=== PATIENT | male | born 1995 | race Caucasian/White ===

== ENCOUNTER 2017-04-15 02:58 | Emergency (ER) | payer OTHER ==
[2017-04-15 03:03] VITALS: BP 146/103; PULSE 110; RESP 24; TEMP 99.9
--- NOTE | 2017-04-15 03:30 | ED ---
Wound/Laceration HPI - General Chief Complaint: Wound/Laceration Stated Complaint: Arm Laceration Time Seen by Provider: 04/15/17 03:21 Source: patient, RN notes reviewed Mode of arrival: ambulatory Limitations: no limitations - History of Present Illness Initial Comments: 21 yo male presents for cc of right forearm laceration. Patient cut it on a window tonight. Patient denies any other injury. NO chest pain, SOB, N/V, fever or chills. Onset/Timin -: hour(s) Extremity Location: Right: Forearm Place: home Patient Tetanus UTD: No Context: accidental Associated Symptoms: none Treatments Prior to Arrival: bandage - Related Data Home Medications Medication Instructions Recorded Confirmed No Known Home Medications [No 06/06/16 04/15/17 Known Home Medications] Allergies Allergy/AdvReac Type Severity Reaction Status Date / Time No Known Allergies Allergy Verified 04/15/17 03:03 Review of Systems ROS Statement: Those systems with pertinent positive or pertinent negative responses have been documented in the HPI. ROS Other: All systems not noted in ROS Statement are negative. Past Medical History Past Medical History: No Reported History History of Any Multi-Drug Resistant Organisms: None Reported Past Surgical History: Appendectomy Additional Past Surgical History / Comment(s): testicular tortion Past Psychological History: No Psychological Hx Reported Smoking Status: Never smoker Past Alcohol Use History: Occasional Past Drug Use History: Marijuana General Exam Limitations: no limitations ENT exam: Present: normal exam, mucous membranes moist Neck exam: Present: normal inspection. Absent: tenderness, meningismus, lymphadenopathy Respiratory exam: Present: normal lung sounds bilaterally. Absent: respiratory distress, wheezes, rales, rhonchi, stridor Cardiovascular Exam: Present: regular rate, normal rhythm, normal heart sounds. Absent: systolic murmur, diastolic murmur, rubs, gallop, clicks Right Upper Arm exam: Present: normal inspection, full ROM. Absent: tenderness, swelling Elbow exam: Present: normal inspection, full ROM. Absent: tenderness, swelling Forearm Wrist exam: Present: full ROM, laceration (6 cm right forearm, mutiple abrasion surrounding forearm). Absent: tenderness, swelling, abrasion Vascular: Present: normal capillary refill. Absent: vascular compromise Neurological exam: Present: alert, oriented X3 Psychiatric exam: Present: normal affect, normal mood Skin exam: Present: warm, dry, intact, normal color. Absent: rash Course Vital Signs 04/15/17 03:01 Temperature 99.9 F H Pulse Rate 110 H Respiratory 24 Rate Blood Pressure 146/103 O2 Sat by Pulse 99 Oximetry Procedures - Laceration Laceration #1 Consent Obtained: verbal consent Time Out Performed: Yes Indication: laceration Site: upper extremity Size (cm): 6 Description: linear Depth: simple, single layer Sedation/Analgesia: none Anesthetic Used: lidocaine 1% Anesthesia Technique: local infiltration Amount (mls): 7 Pre-repair: wound explored, deep structures intact Type of Sutures: nylon Size of Sutures: 5-0 (10) Technique: simple, interrupted Patient Tolerated Procedure: well, no complications Medical Decision Making - Medical Decision Making 21 yo male presents with right forearm laceration. At this time patient underwent laceration repair we discussed care, follow up and xray results. We discussed all the patient questions. At this time he is in agreement with plan. return parameters were discussed and home care. Patient will be discharged home. - Radiology Data Radiology results: image reviewed Interpreted by me: right forearm xray 2 view reviewed by me no fracture, no radioopaqe foreign body , no dislocation, soft tissue injury observed. awaiting official radiology read Disposition Clinical Impression: Laceration of right forearm Disposition: HOME SELF-CARE Condition: Stable Instructions: Care For Your Stitches (ED), Laceration (ED) Additional Instructions: Return for removal in 8-10 days. FOr any worsening or changing symptoms return to the ER. Follow up as discussed. Referrals: Isac Ny MD [STAFF PHYSICIAN] - 1-2 days Time of Disposition: 03:57
[2017-04-15] MEDS ORDERED: DIPH,PERTUS(ACELL)TETVAC-LF 0.5 ML VIAL IM ONE (03:53)
--- NOTE | 2017-04-15 04:12 | XR ---
EXAM: XR Right Forearm, 2 Views CLINICAL HISTORY: Reason: Pain TECHNIQUE: Frontal and lateral views of the right forearm. COMPARISON: No relevant prior studies available. FINDINGS: Bones/joints: No acute fracture. No dislocation. Soft tissues: Soft tissue defect at the distal forearm compatible with history of laceration. No radiopaque foreign body is identified. IMPRESSION: Soft tissue defect at the distal forearm compatible with history of laceration. No radiopaque foreign body or fracture is identified.
== END 2017-04-15 04:00 | disposition home or self-care (01) ==
LOC: EC 02:58
DX: S51.811A Laceration without foreign body of right forearm, initial encounter (principal); W26.9XXA Contact with unspecified sharp object(s), initial encounter
CPT/HCPCS: 12002; 90471; 90715; 99283

== ENCOUNTER 2018-10-26 13:06 | Emergency (ER) | payer OTHER ==
--- NOTE | 2018-10-26 14:00 | ED ---
General Adult HPI - General Chief complaint: GI Bleed Stated complaint: coughing up blood Time Seen by Provider: 10/26/18 13:28 Source: patient Mode of arrival: ambulatory Limitations: no limitations - History of Present Illness Initial comments: 22-year-old male who denies past medical history presenting today for chief complaint of coughing up blood 6 months. Patient states that whenever he has coughed the past 6 months he noticed a small amount of blood with phlegm. Patient states he is not had a persistent cough for past 6 months that she just whenever he experiences some sort of cough. Patient states that yesterday he was drinking heavily, causing him to be "hung over" today, he states a one episode of emesis which she feels is due to heavily drinking. And states he did notice some blood in in the vomit and was concerned and presented for evaluation. Patient denies chest pain, dyspnea, dyspnea on exertion, lower extremity swelling, calf pain, calf swelling, recent travel, recent surgery, hx of cancer, history of tuberculosis, fever, chills, nightsweats, abdominal pain, diarrhea, melena, hematochezia. Pt is every day smoker. Remainder of ROS ( -) Upon arrival BP elevated patient appears well. - Related Data Home Medications Medication Instructions Recorded Confirmed No Known Home Medications 06/06/16 04/15/17 Allergies Allergy/AdvReac Type Severity Reaction Status Date / Time No Known Allergies Allergy Verified 10/26/18 13:17 Review of Systems ROS Statement: Those systems with pertinent positive or pertinent negative responses have been documented in the HPI. ROS Other: All systems not noted in ROS Statement are negative. Past Medical History Past Medical History: No Reported History History of Any Multi-Drug Resistant Organisms: None Reported Past Surgical History: Appendectomy Additional Past Surgical History / Comment(s): testicular tortion Past Psychological History: No Psychological Hx Reported Smoking Status: Never smoker Past Alcohol Use History: Occasional Past Drug Use History: Marijuana General Exam - General Exam Comments Initial Comments: General: The patient is awake and alert, in no distress, and does not appear acutely ill. Eye: +3 mm pupils are equal, round and reactive to light, extra-ocular movements are intact. No nystagmus. There is normal conjunctiva bilaterally. No signs of icterus. Ears, nose, mouth and throat: There are moist mucous membranes and no oral lesions. Neck: The neck is supple, there is no tenderness or JVD. Cardiovascular: There is a regular rate and rhythm. No murmur, rub or gallop is appreciated. Respiratory: Lungs are clear to auscultation, respirations are non-labored, breath sounds are equal. No wheezes, stridor, rales, or rhonchi. Gastrointestinal: Soft, non-distended, non-tender abdomen without masses or organomegaly noted. There is no rebound or guarding present. No CVA tenderness. Bowel sounds are unremarkable. Musculoskeletal: No crepitus to palpation of chest wall or tenderness. Normal ROM, no tenderness. Strength 5/5. Sensation intact. Pulses equal bilaterally 2+ . Neurological: A&O x 3. CN II-XII intact, There are no obvious motor or sensory deficits. Coordination appears grossly intact. Speech is normal. Skin: Skin is warm and dry and no rashes or lesions are noted. Psychiatric: Cooperative, appropriate mood & affect, normal judgment. Limitations: no limitations Course Vital Signs 10/26/18 10/26/18 13:13 15:14 Temperature 98.1 F 97.6 F Pulse Rate 62 61 Respiratory 16 18 Rate Blood Pressure 153/104 146/86 O2 Sat by Pulse 98 98 Oximetry Medical Decision Making - Medical Decision Making Well-appearing 22-year-old male. Laboratory findings unremarkable. Unremarkable pulmonary exam. Chest x-ray negative, no granuloma or free air noted. Giving history of vomiting I do feel this is possible Vianca-Jiménez tear. I do not feel his esophageal rupture given patient's presentation, appearance and chest x-ray findings. Patient appears well. With complaints of blood in phlegm with cough 6 months I did recommend patient follow-up CT with primary care provider. Patient was accepted for insurance coverage during his stay. Patient states he will establish care with a primary care provider and obtain CAT scan. I also recommended that his primary provider obtain records. In addition I gave patient connection with the [facility] a reduce cost outpatient clinic for immediate follow-up in the next 2-3 days. I discussed the case with Dr. Ryan at this time we do feel patient is stable for discharge with outpatient follow-up. Patient is agreeable plan and discharged. Repeat BP within acceptable limits. Pt discharged in stable condition appearing well. - Lab Data Result diagrams: 10/26/18 13:54 10/26/18 13:54 Lab Results 10/26/18 10/26/18 10/26/18 Range/Units 13:54 13:54 13:54 WBC 8.6 (3.8-10.6) k/uL RBC 5.19 (4.30-5.90) m/uL Hgb 16.0 (13.0-17.5) gm/dL Hct 47.9 (39.0-53.0) % MCV 92.3 (80.0-100.0) fL MCH 30.9 (25.0-35.0) pg MCHC 33.4 (31.0-37.0) g/dL RDW 13.0 (11.5-15.5) % Plt Count 195 (150-450) k/uL Neutrophils % 77 % Lymphocytes % 15 % Monocytes % 4 % Eosinophils % 2 % Basophils % 0 % Neutrophils # 6.6 (1.3-7.7) k/uL Lymphocytes # 1.3 (1.0-4.8) k/uL Monocytes # 0.4 (0-1.0) k/uL Eosinophils # 0.2 (0-0.7) k/uL Basophils # 0.0 (0-0.2) k/uL PT 9.7 (9.0-12.0) sec INR 0.9 (<1.2) APTT 25.2 (22.0-30.0) sec Sodium 143 (137-145) mmol/L Potassium 4.6 (3.5-5.1) mmol/L Chloride 110 H (98-107) mmol/L Carbon Dioxide 24 (22-30) mmol/L Anion Gap 9 mmol/L BUN 8 L (9-20) mg/dL Creatinine 0.96 (0.66-1.25) mg/dL Est GFR (CKD-EPI)AfAm >90 (>60 ml/min/1.73 sqM) Est GFR (CKD-EPI)NonAf >90 (>60 ml/min/1.73 sqM) Glucose 90 (74-99) mg/dL Calcium 9.6 (8.4-10.2) mg/dL Total Bilirubin 0.8 (0.2-1.3) mg/dL AST 26 (17-59) U/L ALT 45 (21-72) U/L Alkaline Phosphatase 74 (38-126) U/L Total Protein 7.4 (6.3-8.2) g/dL Albumin 4.6 (3.5-5.0) g/dL Disposition Clinical Impression: Coughing up blood, Bloody emesis, Vianca-Jiménez syndrome Disposition: HOME SELF-CARE Condition: Good Instructions: Vianca-Jiménez Syndrome (ED) Additional Instructions: Please use medication as discussed. Please follow-up with family doctor in the next 2 days of symptoms have not improved. Please return to emergency room if the symptoms increase or worsen or for any other concerns. Is patient prescribed a controlled substance at d/c from ED?: No Referrals: None,Stated [Primary Care Provider] - 1-2 days [facility] [NON-STAFF] - 1-2 days Time of Disposition: 14:46
--- NOTE | 2018-10-26 14:07 | XR ---
EXAMINATION TYPE: XR chest 2V DATE OF EXAM: 10/26/2018 COMPARISON: NONE HISTORY: Hemoptysis for 6 months TECHNIQUE: Frontal and lateral views of the chest are obtained. FINDINGS: There is no focal air space opacity, pleural effusion, or pneumothorax seen. The cardiac silhouette size is within normal limits. The osseous structures are intact. IMPRESSION: No acute cardiopulmonary process. Given the chief complaint of hemoptysis for 6 months n onemergent follow-up chest CT could be performed for further evaluation.
[2018-10-26 14:14] LABS: Basophils % (A) 0 %; Eosinophils # (A) 0.2 k/uL (0-0.7); Eosinophils % (A) 2 %; HCT 47.9 % (39.0-53.0); Lymphocytes # (A) 1.3 k/uL (1.0-4.8); Lymphocytes % (A) 15 %; MCH 30.9 pg (25.0-35.0); MCHC 33.4 g/dL (31.0-37.0); MCV 92.3 fL (80.0-100.0); Mean Platelet Volume 7.8; Monocytes # (A) 0.4 k/uL (0-1.0); Monocytes % (A) 4 %; Neutrophils # (A) 6.6 k/uL (1.3-7.7); Neutrophils % (A) 77 %; Platelet Count 195 k/uL (150-450); RBC 5.19 m/uL (4.30-5.90); WBC 8.6 k/uL (3.8-10.6)
[2018-10-26 14:26] LABS: INR 0.9 (<1.2); Partial Thromboplastin Time 25.2 sec (22.0-30.0); Prothrombin Time 9.7 sec (9.0-12.0)
[2018-10-26 14:30] LABS: ALT 45 U/L (21-72); AST 26 U/L (17-59); Albumin 4.6 g/dL (3.5-5.0); Alkaline Phosphatase 74 U/L (38-126); Anion Gap 9 mmol/L; Blood Urea Nitrogen 8 mg/dL (9-20); Calcium 9.6 mg/dL (8.4-10.2); Carbon Dioxide 24 mmol/L (22-30); Chloride 110 mmol/L (98-107); Glucose 90 mg/dL (74-99); Sodium 143 mmol/L (137-145); Total Bilirubin 0.8 mg/dL (0.2-1.3); Total Protein 7.4 g/dL (6.3-8.2)
[2018-10-26 14:33] LABS: Potassium 4.6 mmol/L (3.5-5.1)
[2018-10-26] MEDS ORDERED: ONDANSETRON ODT 4 MG TAB PO STA (14:44)
[2018-10-26 15:16] VITALS: BP 146/86; PULSE 61; RESP 18; TEMP 97.6
== END 2018-10-26 15:15 | disposition home or self-care (01) ==
LOC: EC 13:06
DX: K22.6 Gastro-esophageal laceration-hemorrhage syndrome (principal); R04.2 Hemoptysis; F17.200 Nicotine dependence, unspecified, uncomplicated
CPT/HCPCS: 36415; 71046; 80053; 85025; 85610; 85730; 99285

== ENCOUNTER 2018-11-10 21:47 | Emergency (ER) | payer OTHER ==
[2018-11-10 22:05] VITALS: BP 145/85; PULSE 92; RESP 20; TEMP 98.4
--- NOTE | 2018-11-10 22:49 | ED ---
General Adult HPI - General Chief complaint: Skin/Abscess/Foreign Body Stated complaint: lump on face Source: patient, family Mode of arrival: ambulatory Limitations: no limitations - Related Data Home Medications Medication Instructions Recorded Confirmed Ibuprofen [Motrin Ib] 800 mg PO Q6H PRN 11/10/18 11/10/18 Previous Rx's Medication Instructions Recorded Cephalexin [Keflex] 500 mg PO Q6HR 5 Days #20 cap 11/10/18 Sulfamethox-Tmp 800-160Mg [Bactrim 1 tab PO Q12HR 5 Days #10 tab 11/10/18 DS 800-160 mg] Allergies Allergy/AdvReac Type Severity Reaction Status Date / Time No Known Allergies Allergy Verified 11/10/18 22:24 Review of Systems ROS Statement: Those systems with pertinent positive or pertinent negative responses have been documented in the HPI. ROS Other: All systems not noted in ROS Statement are negative. Past Medical History Past Medical History: No Reported History History of Any Multi-Drug Resistant Organisms: None Reported Past Surgical History: Appendectomy Additional Past Surgical History / Comment(s): testicular tortion Past Psychological History: No Psychological Hx Reported Smoking Status: Never smoker Past Alcohol Use History: Occasional Past Drug Use History: Marijuana General Exam Limitations: no limitations Course Vital Signs 11/10/18 22:03 Temperature 98.4 F Pulse Rate 92 Respiratory 20 Rate Blood Pressure 145/85 O2 Sat by Pulse 96 Oximetry Medical Decision Making - Medical Decision Making Dictation was produced using [employer] dictation software. please excuse any grammatical, word or spelling errors. Chief Complaint: 22-year-old male presents with left facial pain. History of Present Illness: Patient is a 22-year-old male. He suffered a scratch to his left cheek several days ago. This morning he woke up with pain and swelling over the same area. Patient denies ever having any symptoms like this in the past. Denies any constitutional symptoms. Patient denies any medical problems. The ROS documented in this emergency department record has been reviewed and confirmed by me. Those systems with pertinent positive or negative responses have been documented in the HPI. All other systems are other negative and/or noncontributory. PHYSICAL EXAM: General Impression: Alert and oriented x3, not in acute distress HEENT: Normocephalic atraumatic, extra-ocular movements intact, pupils equal and reactive to light bilaterally, mucous membranes moist. Cardiovascular: Heart regular rate and rhythm, S1&S2 audible, no murmurs, rubs or gallops Chest: Lungs clear to auscultation bilaterally, no rhonchi, no wheeze, no rales Abdomen: Bowel sounds present, abdomen soft, non-tender, non-distended, no organomegaly Musculoskeletal: Pulses present and equal in all extremities, no peripheral edema Motor: Power 5/5 bilaterally, no focal deficits noted Neurological: CN II-XII grossly intact, no focal motor or sensory deficits noted Skin: Small 1 x 1 cm induration over the left cheek Psych: Normal affect and mood ED course: 22yo M withi clinical presentation suspicious for cellulitis of the face vital signs upon arrival are within acceptable limits. Bedside ultrasound was performed showing no drainable fluid collection. Patient given prescription for Bactrim and Keflex. Patient told to return on Tuesday or Tuesday for wound check. Disposition Clinical Impression: Cellulitis Disposition: HOME SELF-CARE Condition: Good Instructions: Cellulitis (ED) Additional Instructions: return to ED on tuesday or tuesday for wound check. Prescriptions: Cephalexin [Keflex] 500 mg PO Q6HR 5 Days #20 cap Sulfamethox-Tmp 800-160Mg [Bactrim DS 800-160 mg] 1 tab PO Q12HR 5 Days #10 tab Is patient prescribed a controlled substance at d/c from ED?: No Referrals: None,Stated [Primary Care Provider] - 1-2 days Time of Disposition: 22:49
== END 2018-11-10 23:15 | disposition home or self-care (01) ==
LOC: EC 21:47
DX: L03.211 Cellulitis of face (principal)
CPT/HCPCS: 99283

== ENCOUNTER 2018-12-21 19:58 | Emergency (ER) | payer OTHER ==
[2018-12-21 20:32] VITALS: RESP 20
[2018-12-21] MEDS ORDERED: LIDOCAINE 1% INJ 10MG/ML (20 ML MDV) SQ STA (20:45)
[2018-12-21] MEDS ORDERED: DIPH,PERTUS(ACELL)TETVAC-LF 0.5 ML VIAL IM ONE (20:45)
--- NOTE | 2018-12-21 21:40 | ED ---
General Adult HPI - General Chief complaint: Wound/Laceration Stated complaint: Finger laceration Time Seen by Provider: 12/21/18 20:20 Source: patient, RN notes reviewed, old records reviewed Mode of arrival: ambulatory Limitations: no limitations - History of Present Illness Initial comments: 23-year-old male patient no pertinent past medical history presents to ED after sustaining a laceration to the third digit on his left hand. Patient reports that he was using a clean knife and cutting vegetables when he cut the lateral aspect of the distal phalanx of his third digit. Patient reports that the knife did not break. Patient reports that he cleaned wound extensively after laceration. Patient denies all other injury. Patient has full active range of motion of digit. Systemic: Pt denies fatigue, fever/chills, rash. Pt denies weakness, night sweats, weight loss. Neuro: Pt denies headache, visual disturbances, syncope or pre-syncope. HEENT: Pt denies ocular discharge or irritation, otalgia, rhinorrhea, pharyngitis or notable lymphadenopathy. Cardiopulmonary: Pt denies chest pain, SOB, heart palpitations, dyspnea on exertion. Abdominal/GI: Pt denies abdominal pain, n/v/d. : Pt denies dysuria, burning w/ urination, frequency/urgency. Denies new onset urinary or bowel incontinence. MSK: Pt denies loss of strength or function in extremities. Neuro: Pt denies new onset weakness, paresthesias. - Related Data Home Medications Medication Instructions Recorded Confirmed No Known Home Medications 12/21/18 12/21/18 Allergies Allergy/AdvReac Type Severity Reaction Status Date / Time No Known Allergies Allergy Verified 12/21/18 20:26 Review of Systems ROS Statement: Those systems with pertinent positive or pertinent negative responses have been documented in the HPI. ROS Other: All systems not noted in ROS Statement are negative. Past Medical History Past Medical History: No Reported History History of Any Multi-Drug Resistant Organisms: None Reported Past Surgical History: Appendectomy Additional Past Surgical History / Comment(s): testicular tortion Past Psychological History: No Psychological Hx Reported Smoking Status: Never smoker Past Alcohol Use History: Occasional Past Drug Use History: Marijuana General Exam - General Exam Comments Initial Comments: Constitutional: NAD, AOX3, Pt has pleasant affect. HEENT: NC/AT, trachea midline, neck supple, no lymphadenopathy. Posterior pharynx non erythematous, without exudates. External ears appear normal, without discharge. Mucous membranes moist. Eyes PERRLA, EOM intact. There is no scleral icterus. No pallor noted. Cardiopulmonary: RRR, no murmurs, rubs or gallops, no JVD noted. Lungs CTAB in anterior and posterior spivey. No peripheral edema. Abdominal exam: Abdomen soft and non-distended. Abdomen non-tender to palpation in all 4 quadrants. Bowel sounds active in LLQ. No hepatosplenomegaly. No ecchymosis Neuro: CN II-XII grossly intact. No nuchal rigidity. MSK: Approximately 2 cm laceration noted on lateral aspect of distal phalanx of third digit on left hand. No nailbed involvement. Full active range of motion of digit. Flexion and extension intact at MCP, PIP, DIP joint. No bony or ligamentous involvement. Wound extensively irrigated with 1 L normal saline. No posterior calf tenderness bilaterally, homans sign negative bilaterally. Posterior tibialis and radial pulse +2 bilaterally. Sensation intact in upper and lower extremities. Full active ROM in upper and lower extremities, 5/5 stregnth. Limitations: no limitations Course Vital Signs 12/21/18 12/21/18 20:26 21:45 Temperature 98 F 98.2 F Pulse Rate 72 77 Respiratory 20 20 Rate Blood Pressure 132/68 135/68 O2 Sat by Pulse 97 99 Oximetry Procedures - Laceration Laceration #1 Consent Obtained: verbal consent Indication: laceration Site: hand Size (cm): 2 Description: linear Depth: simple, single layer Anesthetic Used: lidocaine 1% Anesthesia Technique: local infiltration Amount (mls): 4 Pre-repair: wound explored, irrigated extensively (1L NS ) Type of Sutures: nylon Size of Sutures: 5-0 Number of Sutures: 4 Technique: simple, interrupted Patient Tolerated Procedure: well, no complications Medical Decision Making - Medical Decision Making 23-year-old male patient no pertinent past medical history presents to ED after sustaining a laceration to the third digit on his left hand. Patient reports that he was using a clean knife and cutting vegetables when he cut the lateral aspect of the distal phalanx of his third digit. Patient reports that the knife did not break. Patient reports that he cleaned wound extensively after laceration. Patient denies all other injury. Patient has full active range of motion of digit. Patient vital signs stable, afebrile. Approximately 2 cm laceration noted on lateral aspect of distal phalanx of third digit on left hand. No nailbed involvement. Full active range of motion of digit. Flexion and extension intact at MCP, PIP, DIP joint. No bony or ligamentous involvement. Wound extensively irrigated with 1 L normal saline. Wound closed with 4 simple interrupted sutures. Patient tetanus updated. Patient to return to ED in 7-10 days for suture removal. Educated on signs and symptoms of infection and suture care. Case discussed with Dr. Rose. Disposition Clinical Impression: Laceration Disposition: HOME SELF-CARE Condition: Stable Instructions (If sedation given, give patient instructions): Care For Your Stitches (ED), Laceration (ED) Additional Instructions: Patient to adhere to previously discussed treatment plan and will take medication(s) as directed. Patient to follow up with PCP in 1-2 days. Patient to return to ED if symptoms do not improve. Please return for suture removal: Hand: 7-10 days Face: 5 days Chest/abdomen: 12-14 days Extremities: 7-10 days Scalp: 7 days Eyebrow: 5-7 days Foot/sole: 12-14 days Please monitor for signs and symptoms of infection including: redness, warmth, drainage, discharge. Please return to ED if these signs or symptoms occur, new signs or symptoms develop or if condition worsens in anyway. Is patient prescribed a controlled substance at d/c from ED?: No Referrals: None,Stated [Primary Care Provider] - 1-2 days [facility] [NON-STAFF] - 1-2 days
[2018-12-21 21:54] VITALS: BP 135/68; PULSE 77; TEMP 98.2
== END 2018-12-21 21:45 | disposition home or self-care (01) ==
LOC: EC 19:58
DX: S61.213A Laceration without foreign body of left middle finger without damage to nail, initial encounter (principal); Z23 Encounter for immunization; W26.0XXA Contact with knife, initial encounter; Y93.G3 Activity, cooking and baking
CPT/HCPCS: 12001; 90471; 90715; 99283

== ENCOUNTER 2019-01-11 01:33 | Emergency (ER) | payer OTHER ==
[2019-01-11 01:47] VITALS: BP 145/92; PULSE 75; RESP 16; TEMP 97.8
[2019-01-11] MEDS ORDERED: SULFAMETH-TMP DS STARTER PACK 2 TAB BTL PO STA (02:15)
--- NOTE | 2019-01-11 02:17 | ED ---
General Adult HPI - General Source: patient, RN notes reviewed, old records reviewed Mode of arrival: ambulatory Limitations: no limitations <Miriam Estes - Last Filed: 01/11/19 02:18> <Mely Guthrie P - Last Filed: 01/11/19 06:20> - General Chief complaint: Extremity Problem,Nontraumatic Stated complaint: Poss Returning Cellulitis Lt Hand Time Seen by Provider: 01/11/19 01:50 - History of Present Illness Initial comments: Patient is a 23-year-old male who presents today with an abscess over his left hand. Patient states that the laceration over the distal second digit a few weeks ago. Patient states that over the past 3 days has noticed some redness and swelling over the palm of the hand. Patient reports that is tender to touch. He denies any other areas of lesions. Patient denies any fevers or chills. Patient states that he has had a history of IV drug use, history of sick contacts. Denies any new exposures. (Miriam Estes) - Related Data Previous Rx's Medication Instructions Recorded Sulfamethox-Tmp 800-160Mg [Bactrim 1 tab PO DAILY #20 tab 01/11/19 DS 800-160 mg] Allergies Allergy/AdvReac Type Severity Reaction Status Date / Time No Known Allergies Allergy Verified 01/11/19 01:47 Review of Systems ROS Other: All systems not noted in ROS Statement are negative. <Miriam Estes - Last Filed: 01/11/19 02:18> ROS Other: All systems not noted in ROS Statement are negative. <Mely Guthrie P - Last Filed: 01/11/19 06:20> ROS Statement: Those systems with pertinent positive or pertinent negative responses have been documented in the HPI. Past Medical History Past Medical History: No Reported History History of Any Multi-Drug Resistant Organisms: None Reported Past Surgical History: Appendectomy Additional Past Surgical History / Comment(s): testicular tortion Past Psychological History: No Psychological Hx Reported Smoking Status: Current every day smoker Past Alcohol Use History: Occasional Past Drug Use History: Marijuana <Miriam Estes - Last Filed: 01/11/19 02:18> General Exam Limitations: no limitations General appearance: alert, in no apparent distress Head exam: Present: atraumatic, normocephalic, normal inspection Eye exam: Present: normal appearance, PERRL, EOMI. Absent: scleral icterus, conjunctival injection, periorbital swelling ENT exam: Present: normal exam, mucous membranes moist Neck exam: Present: normal inspection. Absent: tenderness, meningismus, lymphadenopathy Respiratory exam: Present: normal lung sounds bilaterally. Absent: respiratory distress, wheezes, rales, rhonchi, stridor Cardiovascular Exam: Present: regular rate, normal rhythm, normal heart sounds. Absent: systolic murmur, diastolic murmur, rubs, gallop, clicks GI/Abdominal exam: Present: soft, normal bowel sounds. Absent: distended, tenderness, guarding, rebound, rigid Extremities exam: Present: normal inspection, full ROM, normal capillary refill, other (Patient has one singular erythematous lesion over the left palmar hand near the thenar eminence. The area is fluctuant measuring 2 cm x 1 cm.). Absent: tenderness, pedal edema, joint swelling, calf tenderness Back exam: Present: normal inspection <Miriam Estes - Last Filed: 01/11/19 02:18> - General Exam Comments Initial Comments: This is a 23-year-old male. Alert and oriented. No distress. (Miriam Estes) Course Vital Signs 01/11/19 01:43 Temperature 97.8 F Pulse Rate 75 Respiratory 16 Rate Blood Pressure 145/92 O2 Sat by Pulse 98 Oximetry Medical Decision Making <Miriam Estes - Last Filed: 01/11/19 02:18> <Mely Guthrie - Last Filed: 01/11/19 06:20> - Medical Decision Making 23-year-old male comes in today with left hand cellulitis and concern for abscess". Patient has an area measuring 2 cm x 1 cm of erythema over the thenar eminence of the left hand. Patient has no fevers or chills. He denies any history of drug use. He has no other areas of lesions on his hands or feet. Patient reports he did have a laceration over his hand a few weeks ago. I discussed did attempt to drain the wound with an 18-gauge needle after was cleansed with iodine. No pus was removed only blood. No wound culture was obtained. Patient denies any falls or trauma to the hand. I discussed at this time to properly treat for any cellulitis or bacterial infection. Patient will be discharged with prescription for Bactrim. Discussed doing Epsom salts soaks. Patient given referral to hand surgeon. (Miriam Estes) I was available for consultation in the emergency department. The history and physical exam were done by the midlevel provider. I was consulted for this patient's care. I reviewed the case with the midlevel provider and based on their presentation of the patient, I agree with the assessment, medical decision making and plan of care as documented. (Mely Guthrie) Disposition Is patient prescribed a controlled substance at d/c from ED?: No Time of Disposition: 02:15 <Miriam Estes - Last Filed: 01/11/19 02:18> <Mely Guthrie - Last Filed: 01/11/19 06:20> Clinical Impression: Abscess, palm Disposition: HOME SELF-CARE Condition: Good Instructions (If sedation given, give patient instructions): Abscess (ED) Additional Instructions: Patient advised to taking antibiotic as prescribed. Monitor the area if the redness and swelling worsens please return to ED for reevaluation. Patient should take the medication as prescribed. Motrin Tylenol for pain. Recommend doing Epsom salts soaks of the hand as well. Prescriptions: Sulfamethox-Tmp 800-160Mg [Bactrim DS 800-160 mg] 1 tab PO DAILY #20 tab Referrals: None,Stated [Primary Care Provider] - 1-2 days [place] DO [Medical Doctor] - 1-2 days
== END 2019-01-11 02:27 | disposition home or self-care (01) ==
LOC: EC 01:33
DX: L02.512 Cutaneous abscess of left hand (principal); F17.200 Nicotine dependence, unspecified, uncomplicated
CPT/HCPCS: 10060; 99283

== ENCOUNTER 2019-04-29 09:24 | Emergency (ER) | payer OTHER ==
[2019-04-29 09:32] VITALS: BP 166/99; PULSE 88; RESP 16; TEMP 97.8
--- NOTE | 2019-04-29 10:00 | ED ---
Skin/Abscess/FB HPI - General Chief complaint: Skin/Abscess/Foreign Body Stated complaint: mass on elbow Time Seen by Provider: 04/29/19 09:34 Source: patient, RN notes reviewed Mode of arrival: ambulatory Limitations: no limitations - History of Present Illness Initial comments: 23-year-old male presents emergency Department chief complaint of right swollen elbow. Patient states it started a few days ago states it's red and swollen. Patient states there was a small open wound and may be a bug bite. Patient reports no fevers or chills patient does have full range of motion of motion no paresthesias. - Related Data Previous Rx's Medication Instructions Recorded Sulfamethox-Tmp 800-160Mg [Bactrim 1 tab PO DAILY #20 tab 01/11/19 DS 800-160 mg] Ibuprofen [Motrin] 600 mg PO Q8HR PRN #30 tab 04/29/19 Sulfamethox-Tmp 800-160Mg [Bactrim 2 each PO Q12HR #40 tab 04/29/19 Ds] Allergies Allergy/AdvReac Type Severity Reaction Status Date / Time No Known Allergies Allergy Verified 04/29/19 09:32 Review of Systems ROS Statement: Those systems with pertinent positive or pertinent negative responses have been documented in the HPI. ROS Other: All systems not noted in ROS Statement are negative. Past Medical History Past Medical History: No Reported History History of Any Multi-Drug Resistant Organisms: None Reported Past Surgical History: Appendectomy Additional Past Surgical History / Comment(s): testicular tortion Past Psychological History: No Psychological Hx Reported Smoking Status: Current every day smoker Past Alcohol Use History: Occasional Past Drug Use History: Marijuana General Exam Limitations: no limitations General appearance: alert, in no apparent distress Head exam: Present: atraumatic, normocephalic, normal inspection Respiratory exam: Present: normal lung sounds bilaterally. Absent: respiratory distress, wheezes, rales, rhonchi, stridor Cardiovascular Exam: Present: regular rate, normal rhythm, normal heart sounds. Absent: systolic murmur, diastolic murmur, rubs, gallop, clicks Extremities exam: Present: other (Right elbow there is swelling noted along the olecranon process aspect. There is mild tenderness patient does have full range of motion no pain with pronation supination neurovascular intact mild warmth with palpation no fluctuant area) Skin exam: Present: warm, dry, intact Course Vital Signs 07/07/19 09:29 Temperature 97.8 F Pulse Rate 88 Respiratory 16 Rate Blood Pressure 166/99 O2 Sat by Pulse 96 Oximetry Medical Decision Making - Medical Decision Making 23-year-old male presented from for right elbow pain and swelling. Patient appears to have early signs of olecranon bursitis versus septic bursitis. Patient we given Bactrim DS 2 tabs twice daily and we discharge on ibuprofen, rest, cool compresses. Symptoms are very mild at this time. He does not need inpatient treatment. Patient advised to have recheck within 24 hours she is return for any worsening symptoms. Patient agrees this plan does understand the risk Disposition Clinical Impression: Septic olecranon bursitis of right elbow Disposition: HOME SELF-CARE Condition: Stable Instructions (If sedation given, give patient instructions): Elbow Bursitis (ED) Additional Instructions: Please return to the Emergency Department if symptoms worsen or any other concerns. Prescriptions: Sulfamethox-Tmp 800-160Mg [Bactrim Ds] 2 each PO Q12HR #40 tab Ibuprofen [Motrin] 600 mg PO Q8HR PRN #30 tab PRN Reason: Pain Is patient prescribed a controlled substance at d/c from ED?: No Referrals: None,Stated [Primary Care Provider] - 1-2 days Time of Disposition: 10:00
== END 2019-04-29 10:19 | disposition home or self-care (01) ==
LOC: EC 09:24
DX: M71.121 Other infective bursitis, right elbow (principal); F17.200 Nicotine dependence, unspecified, uncomplicated
CPT/HCPCS: 99283

== ENCOUNTER 2019-04-30 19:24 | Emergency (ER) | payer OTHER ==
[2019-04-30 20:35] VITALS: RESP 18
[2019-04-30 22:13] LABS: Basophils % (A) 0 %; Eosinophils # (A) 0.1 k/uL (0-0.7); Eosinophils % (A) 1 %; HGB 15.8 gm/dL (13.0-17.5); Lymphocytes # (A) 1.3 k/uL (1.0-4.8); Lymphocytes % (A) 8 %; MCH 30.8 pg (25.0-35.0); MCHC 33.7 g/dL (31.0-37.0); MCV 91.5 fL (80.0-100.0); Mean Platelet Volume 7.9; Monocytes # (A) 0.7 k/uL (0-1.0); Monocytes % (A) 4 %; Neutrophils # (A) 13.7 k/uL (1.3-7.7); Neutrophils % (A) 86 %; Platelet Count 183 k/uL (150-450); RBC 5.14 m/uL (4.30-5.90); RDW 13.9 % (11.5-15.5); WBC 15.9 k/uL (3.8-10.6)
[2019-04-30 22:23] LABS: ALT 28 U/L (21-72); AST 33 U/L (17-59); African American GFR (CKD) >90 (>60 ml/min/1.73 sqM); Albumin 4.9 g/dL (3.5-5.0); Alkaline Phosphatase 87 U/L (38-126); Anion Gap 12 mmol/L; Blood Urea Nitrogen 18 mg/dL (9-20); Calcium 9.8 mg/dL (8.4-10.2); Carbon Dioxide 20 mmol/L (22-30); Chloride 105 mmol/L (98-107); Glucose 116 mg/dL (74-99); Sodium 137 mmol/L (137-145); Total Bilirubin 1.2 mg/dL (0.2-1.3)
--- NOTE | 2019-04-30 23:01 | XR ---
EXAM: XR Right Elbow Complete, 3 or More Views CLINICAL HISTORY: : Pain TECHNIQUE: Frontal, lateral and oblique views of the right elbow. COMPARISON: No relevant prior studies available. FINDINGS: Bones/joints: Unremarkable. No acute fracture. No dislocation. Soft tissues: Unremarkable. IMPRESSION: No evidence for fracture or malalignment of the right elbow
[2019-05-01] MEDS ORDERED: MORPHINE SULFATE 4 MG/ML SYRINGE IV STA (00:32)
--- NOTE | 2019-05-01 01:20 | ED ---
General Adult HPI <Luigi Ryan Lola - Last Filed: 05/01/19 02:09> - General Source: patient, RN notes reviewed, old records reviewed Mode of arrival: ambulatory Limitations: no limitations <Dequan Rodriguez - Last Filed: 05/01/19 17:29> - General Chief complaint: Recheck/Abnormal Lab/Rx Stated complaint: Abscess on elbow Time Seen by Provider: 04/30/19 21:34 - History of Present Illness Initial comments: 23-year-old male patient with no pertinent past medical history presents to ED with chief complaint of right elbow pain and swelling. Patient presents ED with approximate 4 day of right elbow redness and swelling. Patient was seen 2 days ago and started on Bactrim. Patient states that the redness has gotten slightly worse. Patient does still have full range of motion of his elbow. Patient denies any systemic complaints. Denies any nausea vomiting diarrhea fevers or chills. Patient denies any abdominal pain chest pain shortness of breath. Systemic: Pt denies fatigue, fever/chills, rash. Pt denies weakness, night sweats, weight loss. Neuro: Pt denies headache, visual disturbances, syncope or pre-syncope. HEENT: Pt denies ocular discharge or irritation, otalgia, rhinorrhea, pharyngitis or notable lymphadenopathy. Cardiopulmonary: Pt denies chest pain, SOB, heart palpitations, dyspnea on exertion. Abdominal/GI: Pt denies abdominal pain, n/v/d. : Pt denies dysuria, burning w/ urination, frequency/urgency. Denies new onset urinary or bowel incontinence. MSK: Pt denies myalgia, loss of strength or function in extremities. Neuro: Pt denies new onset weakness, paresthesias. (Dequan Rodriguez) - Related Data Previous Rx's Medication Instructions Recorded Sulfamethox-Tmp 800-160Mg [Bactrim 1 tab PO DAILY #20 tab 01/11/19 DS 800-160 mg] Ibuprofen [Motrin] 600 mg PO Q8HR PRN #30 tab 04/29/19 Sulfamethox-Tmp 800-160Mg [Bactrim 2 each PO Q12HR #40 tab 04/29/19 Ds] Cephalexin [Keflex] 500 mg PO Q6HR 10 Days cap 05/01/19 Sulfamethox-Tmp 800-160Mg [Bactrim 2 tab PO Q12HR 10 Days tab 05/01/19 DS 800-160 mg] Allergies Allergy/AdvReac Type Severity Reaction Status Date / Time No Known Allergies Allergy Verified 04/29/19 09:32 Review of Systems ROS Other: All systems not noted in ROS Statement are negative. <ShelbyLuigi Lola - Last Filed: 05/01/19 02:09> ROS Other: All systems not noted in ROS Statement are negative. <Dequan Rodriguez - Last Filed: 05/01/19 17:29> ROS Statement: Those systems with pertinent positive or pertinent negative responses have been documented in the HPI. 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 HEENT: NC/AT, trachea midline, neck supple, no lymphadenopathy. Posterior p harynx non erythematous, without exudates. External ears appear normal, without discharge. Mucous membranes moist. Eyes PERRLA, EOM intact. There is no scleral icterus. No pallor noted. Cardiopulmonary: RRR, no murmurs, rubs or gallops, no JVD noted. Lungs CTAB in anterior and posterior spivey. No peripheral edema. Abdominal exam: Abdomen soft and non-distended. Abdomen non-tender to palpation in all 4 quadrants. Bowel sounds active in LLQ. No hepatosplenomegaly. No ecchymosis Neuro: CN II-XII grossly intact. No nuchal rigidity. No raccon eyes, no sellers sign, no hemotympanum. No cervical spinal tenderness. MSK: Right olecranon bursa mildly inflamed and erythematous. Mildly tender to palpation. Full active range of motion of joint. Distal pulses intact and equal, neurovascularly intact. Bursa aspiration was performed using sterile procedure. Ultrasound was also performed by attending physician Dr. Ryan which did not display any pocket of pus. No posterior calf tenderness bi laterally, homans sign negative bilaterally. Posterior tibialis and radial pulse +2 bilaterally. Sensation intact in upper and lower extremities. Full active ROM in upper and lower extremities, 5/5 stregnth. (Dequan Rodriguez) Course Vital Signs 04/30/19 04/30/19 05/01/19 20:32 23:04 00:42 Temperature 98.4 F 98.3 F 98.3 F Pulse Rate 94 94 94 Respiratory 18 18 18 Rate Blood Pressure 150/83 146/91 145/55 O2 Sat by Pulse 98 100 100 Oximetry 05/01/19 05/01/19 01:45 02:45 Temperature 98.1 F 98.1 F Pulse Rate 90 92 Respiratory 18 18 Rate Blood Pressure 121/76 122/70 O2 Sat by Pulse 94 L 100 Oximetry Medical Decision Making - Lab Data Result diagrams: 04/30/19 21:56 04/30/19 21:56 <Luigi Ryan - Last Filed: 05/01/19 02:09> - Lab Data Result diagrams: 04/30/19 21:56 04/30/19 21:56 <Dequan Rodriguez - Last Filed: 05/01/19 17:29> - Medical Decision Making PA attestation: I, Dr. Luigi Ryan, personally saw and examined the patient. I have reviewed and agree with the resident/PA findings, including all diagnostic interpretations and treatment plans as written unless otherwise stated. I was present for the zamarripa portions of any procedures performed and inc lusive time noted for any critical care statement. Patient was seen and evaluated at bedside by myself along with the care of physician processing assistant Dequan Rivera,. Patient was seen here 2 days ago for elbow cellulitic changes. He was started on Bactrim 2 days ago. He states that his symptoms slightly worsened. Patient denies any constitutional symptoms. Patient does have slight leukocytosis of 15.9. Rest of labs are unremarkable. Hemodynamically patient stable with normal vital signs. No fevers. There was concern of septic bursitis. Patient's cellulitic area was aspirated without any removal of any significant fluid. Plan care bedside ultrasound was performed by myself showing no pocket of pus. He did however appear to be cellulitic changes at the elbow. Patient's medications reviewed. I believe that patient did not report any improvement of symptoms given that he was only given Bactrim. Patient's symptoms seem to be more suspicious for cellulitis and patient will require Keflex. Patient will be given prescription of Bactrim and Keflex the PA. Patient prescription for discharge. He understands that he should return to the emergency department if his symptoms do not get worse. He is encouraged to come back to the emergency department for wound check given that he does not have any primary care physician. Patient is understandable agreeable to plan. PA will give patient Bactrim and Keflex prior to discharge so he does not have to fill his prescription until tomorrow morning. (Luigi Ryan) 23-year-old male patient with no pertinent past medical history presents to ED with chief complaint of right elbow pain and swelling. Patient presents ED with approximate 4 day of right elbow redness and swelling. Patient was seen 2 days ago and started on Bactrim. Patient states that the redness has gotten slightly worse. Patient does still have full range of motion of his elbow. Patient denies any systemic complaints. Denies any nausea vomiting diarrhea fevers or chills. Patient denies any abdominal pain chest pain shortness of breath. Pt VSS, afebrile. Physical exam dispayed: Right olecranon bursa mildly inflamed and erythematous. Mildly tender to palpation. Full active range of motion of joint. Distal pulses intact and equal, neurovascularly intact. Bursa aspiration was performed using sterile procedure. Ultrasound was also performed by attending physician Dr. Ryan which did not display any pocket of pus. O2 investigations field looks cytosis of 15.9. Otherwise non-impressive. Lactic acid within normal limits. Plain film elbow demonstrate acute process. Bursa aspiration was performed however cell counts were not able to be obtained. Shared decision making with patient and extensive discussion with patient and attending physician Dr. Ryan. At this time we believe his right elbow to be cellulitic. Patient Keflex will be added onto Bactrim. Patient also administered dose of Rocephin ED. Patient will discharge with close outpatient follow-up tomorrow and strict precautions if symptoms worsen in any way. Case discussed in depth with Dr. Ryan. (Dequan Rodriguez - Lab Data Lab Results 04/30/19 04/30/19 04/30/19 Range/Units 21:56 21:56 21:56 WBC 15.9 H (3.8-10.6) k/uL RBC 5.14 (4.30-5.90) m/uL Hgb 15.8 (13.0-17.5) gm/dL Hct 47.0 (39.0-53.0) % MCV 91.5 (80.0-100.0) fL MCH 30.8 (25.0-35.0) pg MCHC 33.7 (31.0-37.0) g/dL RDW 13.9 (11.5-15.5) % Plt Count 183 (150-450) k/uL Neutrophils % 86 % Lymphocytes % 8 % Monocytes % 4 % Eosinophils % 1 % Basophils % 0 % Neutrophils # 13.7 H (1.3-7.7) k/uL Lymphocytes # 1.3 (1.0-4.8) k/uL Monocytes # 0.7 (0-1.0) k/uL Eosinophils # 0.1 (0-0.7) k/uL Basophils # 0.0 (0-0.2) k/uL Sodium 137 (137-145) mmol/L Potassium 5.0 (3.5-5.1) mmol/L Chloride 105 (98-107) mmol/L Carbon Dioxide 20 L (22-30) mmol/L Anion Gap 12 mmol/L BUN 18 (9-20) mg/dL Creatinine 1.09 (0.66-1.25) mg/dL Est GFR (CKD-EPI)AfAm >90 (>60 ml/min/1.73 sqM) Est GFR (CKD-EPI)NonAf >90 (>60 ml/min/1.73 sqM) Glucose 116 H (74-99) mg/dL Plasma Lactic Acid Bret 1.2 (0.7-2.0) mmol/L Calcium 9.8 (8.4-10.2) mg/dL Total Bilirubin 1.2 (0.2-1.3) mg/dL AST 33 (17-59) U/L ALT 28 (21-72) U/L Alkaline Phosphatase 87 (38-126) U/L Total Protein 8.0 (6.3-8.2) g/dL Albumin 4.9 (3.5-5.0) g/dL Disposition <Luigi Ryan - Last Filed: 05/01/19 02:09> Is patient prescribed a controlled substance at d/c from ED?: No <Dequan Rodriguez - Last Filed: 05/01/19 17:29> Clinical Impression: Cellulitis Disposition: HOME SELF-CARE Condition: Stable Instructions (If sedation given, give patient instructions): Cellulitis (ED) Additional Instructions: Patient to adhere to previously discussed treatment plan and will take medication(s) as directed. Patient to follow up with PCP in 1-2 days. Patient to return to ED if symptoms do not improve. Return immediately to ER if condition worsens in any way. Prescriptions: Sulfamethox-Tmp 800-160Mg [Bactrim DS 800-160 mg] 2 tab PO Q12HR 10 Days tab Cephalexin [Keflex] 500 mg PO Q6HR 10 Days cap Referrals: None,Stated [Primary Care Provider] - 1-2 days
[2019-05-01 01:46] VITALS: TEMP 98.1
[2019-05-01] MEDS ORDERED: SULFAMETHOX-TMP 800-160MG 1 EACH TAB PO STA (02:15)
[2019-05-01] MEDS ORDERED: CEPHALEXIN 500 MG CAP PO STA (02:15)
[2019-05-01 02:57] VITALS: BP 122/70; PULSE 92
== END 2019-05-01 02:53 | disposition home or self-care (01) ==
LOC: EC 19:24
DX: L03.113 Cellulitis of right upper limb (principal); F17.200 Nicotine dependence, unspecified, uncomplicated
CPT/HCPCS: 99284; 20606; 96365; 96375; 36415; 80053; 83605; 85025; 87070; 87205; 87077; 87186; 73080; J2270; J0696

== ENCOUNTER 2024-02-14 13:40 | Emergency (ER) | payer BC ==
--- NOTE | 2024-02-14 15:07 | ED ---
Chest Pain HPI - General Chief Complaint: Chest Pain Stated Complaint: Chest pain Time Seen by Provider: 02/14/24 13:53 Source: patient, RN notes reviewed Mode of arrival: EMS - History of Present Illness Initial Comments: his is a 28-year-old male no significant past medical history who presents the emergency department with chief complaint of chest pain that started around 930 this morning at work. Patient states that the pain is reproducible on palpation in addition to rating to his left arm back. Pain is also exacerabted with movement of the left arm. States that he is also been feeling dizzy. Denies cough, congestion, rhinorrhea, dyspnea. States that he started a prescription for Chantix 2 weeks ago to aid in smoking cessation. Denies personal and family cardiac history. - Related Data Previous Rx's Medication Instructions Recorded Sulfamethox-Tmp 800-160Mg [Bactrim 1 tab PO DAILY #20 tab 01/11/19 DS 800-160 mg] Ibuprofen [Motrin] 600 mg PO Q8HR PRN #30 tab 04/29/19 Sulfamethox-Tmp 800-160Mg [Bactrim 2 each PO Q12HR #40 tab 04/29/19 Ds] Cephalexin [Keflex] 500 mg PO Q6HR 10 Days cap 05/01/19 Sulfamethox-Tmp 800-160Mg [Bactrim 2 tab PO Q12HR 10 Days tab 05/01/19 DS 800-160 mg] Allergies Allergy/AdvReac Type Severity Reaction Status Date / Time No Known Allergies Allergy Verified 02/14/24 14:15 Review of Systems ROS Statement: Those systems with pertinent positive or pertinent negative responses have been documented in the HPI. ROS Other: All systems not noted in ROS Statement are negative. Past Medical History Past Medical History: No Reported History History of Any Multi-Drug Resistant Organisms: MRSA Date of last positivie culture/infection: 04/30/19 MDRO Source:: ASPIRATE Past Surgical History: Appendectomy Additional Past Surgical History / Comment(s): testicular tortion Past Psychological History: No Psychological Hx Reported Past Alcohol Use History: Occasional Past Drug Use History: Marijuana General Exam - General Exam Comments Initial Comments: Visual Physical Exam Vital signs reviewed General: Well-appearing, nontoxic, no acute distress. Head: Normocephalic, atraumatic Eyes: PERRLA, EOMI ENT: Airway patent Chest: Nonlabored breathing Skin: No visual rash, normal skin tone Neuro: Alert and oriented 3 Musculoskeletal: No gross abnormalities General appearance: alert, in no apparent distress Head exam: Present: atraumatic, normocephalic, normal inspection Eye exam: Present: normal appearance, PERRL, EOMI. Absent: scleral icterus, conjunctival injection, periorbital swelling ENT exam: Present: normal exam, mucous membranes moist Neck exam: Present: normal inspection. Absent: tenderness, meningismus, lymphadenopathy Respiratory exam: Present: normal lung sounds bilaterally. Absent: respiratory distress, wheezes, rales, rhonchi, stridor Cardiovascular Exam: Present: regular rate, normal rhythm, normal heart sounds, other (anterior left sideded chest wall tenderness to palpation). Absent: systolic murmur, diastolic murmur, rubs, gallop, clicks GI/Abdominal exam: Present: soft, normal bowel sounds. Absent: distended, tenderness, guarding, rebound, rigid Extremities exam: Present: normal inspection, full ROM (movement of the left arm reproduces pain over the left anterior chest), normal capillary refill. Absent: tenderness, pedal edema, joint swelling, calf tenderness Back exam: Present: normal inspection, tenderness (over the posterior mid left back with palpation and movement) Neurological exam: Present: alert, oriented X3, CN II-XII intact Psychiatric exam: Present: normal affect, normal mood Skin exam: Present: warm, dry, intact, normal color. Absent: rash Course Vital Signs 02/14/24 02/14/24 02/14/24 14:13 17:00 18:00 Temperature 97.7 F 97.6 F Pulse Rate 76 81 Pulse Rate [ 81 Specialist Managers ] Respiratory 18 16 Rate Blood Pressure 129/87 121/82 O2 Sat by Pulse 99 99 Oximetry Chest Pain MDM - MDM I completed the quick note portion of this chart signed Rosalia Talbert PA-C Was pt. sent in by a medical professional or institution ([facility] Morrison, [employer], urgent care, hospital, or detention...) When possible be specific @ -No Did you speak to anyone other than the patient for history (EMS, parent, family, police, friend...)? What history was obtained from this source @ -No Did you review nursing and triage notes (agree or disagree)? Why? @ -I reviewed and agree with nursing and triage notes Were old charts reviewed (outside hosp., previous admission, EMS record, old EKG, old radiological studies, urgent care reports/EKG's, detention records)? Report findings @ -No old charts were reviewed Differential Diagnosis (chest pain, altered mental status, abdominal pain women, abdominal pain men, vaginal bleeding, weakness, fever, dyspnea, syncope, headache, dizziness, GI bleed, back pain, seizure, CVA, palpatations, mental health, musculoskeletal)? @ -Differential Chest Pain: Stable Angina, Unstable Angina, STEMI, NSTEMI Aortic Dissection, Pneumothorax, Musculoskeletal, Esophageal Spasm GERD, Cholecystitis, Pancreatitis, Zoster, this is not meant to be an all-inclusive list. EKG interpreted by me (3pts min.). @ -completed at 1530 sinus rhythm, ventricular rate 74, CA interval 136, QTc 399. No acute signs of ischemia. X-rays interpreted by me (1pt min.). @ -chest x-ray no acute cardiopulmonary process CT interpreted by me (1pt min.). @ -None done U/S interpreted by me (1pt. min.). @ -None done What testing was considered but not performed or refused? (CT, X-rays, U/S, labs)? Why? @ -None What meds were considered but not given or refused? Why? @ -None Did you discuss the management of the patient with other professionals (professionals i.e. , PA, [employer], lab, RT, psych nurse, director social welfare, grinding wheel dresser, teacher, officer lieutenant, casework supervisor)? Give summary @ -No Was smoking cessation discussed for >3mins.? @ -No Was critical care preformed (if so, how long)? @ -No Were there social determinants of health that impacted care today? How? (Homelessness, low income, unemployed, alcoholism, drug addiction, transportatio n, low edu. Level, literacy, decrease access to med. care, senior care, rehab)? @ -No Was there de-escalation of care discussed even if they declined (Discuss DNR or withdrawal of care, Hospice)? DNR status @ -No What co-morbidities impacted this encounter? (DM, HTN, Smoking, COPD, CAD, Cancer, CVA, ARF, Chemo, Hep., AIDS, mental health diagnosis, sleep apnea, morbid obesity)? @ -None Was patient admitted / discharged? Hospital course, mention meds given and route, prescriptions, significant lab abnormalities, going to OR and other pertinent info. @ -Discharge. 28-year-old female with a complaint of chest pain. On physical examination patient's chest pain noted to be reproducible with palpation in addition to being elicited with left arm movement and on movement of his back. This pain also radiates into his back. Due to presentation this seems more likely musculoskeletal in nature rather than cardiac. Patient's laboratory results unremarkable for acute electrolyte abnormalities, anemia, kidney liver function within normal limits. Patient's troponin nonelevated. Patient's EKG no acute cardiopulmonary process. At this time discussion with patient that symptoms are likely secondary to a muscle strain or pulling. Patient states that his symptoms have improved with administration of Toradol and Tylenol. Recommend patient continue symptomatic treatment at home and follow-up with his primary care provider this week. Patient provided with work note for today. Discussed with Dr. Osborn Undiagnosed new problem with uncertain prognosis? @ -No Drug Therapy requiring intensive monitoring for toxicity (Heparin, Nitro, Insulin, Cardizem)? @ -No Were any procedures done? @ -No Diagnosis/symptom? @ -anterior reproducible chest wall pain, costochondritis Acute, or Chronic, or Acute on Chronic? @ -acute Uncomplicated (without systemic symptoms) or Complicated (systemic symptoms)? @ -uncomplicated Side effects of treatment? @ -No Exacerbation, Progression, or Severe Exacerbation? @ -No Poses a threat to life or bodily function? How? (Chest pain, [place], [place], pneumonia, PE, COPD, DKA, ARF, appy, cholecystitis, CVA, Diverticulitis, Homicidal, Suicidal, threat to staff... and all critical care pts) @ -No Disposition Clinical Impression: Anterior chest wall pain, Costochondral chest pain Narrative: Please return to the Emergency Department if symptoms worsen or any other concerns. Continue to take Tylenol Motrin as needed for symptomatic relief. Follow-up with your primary care provider this week for further evaluation. Disposition: HOME SELF-CARE Condition: Good Instructions (If sedation given, give patient instructions): Costochondritis (ED) Is patient prescribed a controlled substance at d/c from ED?: No Referrals: Zachery Whittaker MD [Primary Care Provider] - 1-2 days Time of Disposition: 17:13
--- NOTE | 2024-02-14 16:01 | XR ---
EXAMINATION TYPE: XR chest 2V DATE OF EXAM: 02/14/2024 COMPARISON: 10/26/2018 INDICATION: Chest pain and dizziness TECHNIQUE: Frontal and lateral views of the chest are obtained. FINDINGS: The heart size is normal. The pulmonary vasculature is normal. The lungs are clear. IMPRESSION: 1. No acute pulmonary process.
[2024-02-14 16:42] LABS: Basophils # (A) 0.1 k/uL (0-0.2); Basophils % (A) 1 %; Eosinophils # (A) 0.1 k/uL (0-0.7); Eosinophils % (A) 1 %; HCT 46.6 % (39.0-53.0); HGB 15.5 gm/dL (13.0-17.5); Lymphocytes # (A) 2.8 k/uL (1.0-4.8); Lymphocytes % (A) 30 %; MCH 30.7 pg (25.0-35.0); MCHC 33.3 g/dL (31.0-37.0); MCV 92.3 fL (80.0-100.0); Mean Platelet Volume 8.3; Monocytes # (A) 0.5 k/uL (0-1.0); Monocytes % (A) 6 %; Neutrophils # (A) 5.6 k/uL (1.3-7.7); Neutrophils % (A) 60 %; Platelet Count 167 k/uL (150-450); RBC 5.05 m/uL (4.30-5.90); RDW 12.6 % (11.5-15.5); WBC 9.4 k/uL (3.8-10.6)
[2024-02-14 16:56] LABS: ALT 60 U/L (4-49); AST 37 U/L (17-59); African American GFR (CKD) >90 (>60 ml/min/1.73 sqM); Albumin 4.4 g/dL (3.5-5.0); Alkaline Phosphatase 77 U/L (38-126); Anion Gap 9 mmol/L; Blood Urea Nitrogen 12 mg/dL (9-20); Calcium 9.3 mg/dL (8.4-10.2); Carbon Dioxide 21 mmol/L (22-30); Chloride 109 mmol/L (98-107); Glucose 95 mg/dL (74-99); Magnesium 2.2 mg/dL (1.6-2.3); Non-African American GFR(CKD) >90 (>60 ml/min/1.73 sqM); Potassium 4.1 mmol/L (3.5-5.1); Sodium 139 mmol/L (137-145); Total Bilirubin 1.2 mg/dL (0.2-1.3); Total Protein 7.2 g/dL (6.3-8.2)
[2024-02-14] MEDS: KETOROLAC 15 MG/ML 1 ML VIAL IVP STA (17:41)
[2024-02-14] MEDS: ACETAMINOPHEN TAB 500 MG TAB PO STA (17:42)
[2024-02-14 18:29] VITALS: BP 121/82; PULSE 81; RESP 16; TEMP 97.6
== END 2024-02-14 18:02 | disposition home or self-care (01) ==
LOC: EC 13:40
DX: R07.1 Chest pain on breathing (principal); F12.90 Cannabis use, unspecified, uncomplicated
CPT/HCPCS: 99285 ×2; 96374 ×2; 36415; 93005; 80053; 83735; 84484; 85025; 71046; J1885

== ENCOUNTER 2024-08-21 11:28 | Emergency (ER) | payer BC ==
[2024-08-21 11:39] VITALS: RESP 18
--- NOTE | 2024-08-21 12:17 | ED ---
ENT HPI - General Chief complaint: Dental/Oral Stated complaint: dental pain Time Seen by Provider: 08/21/24 12:13 Source: patient, RN notes reviewed Mode of arrival: ambulatory Limitations: no limitations - Related Data Previous Rx's Medication Instructions Recorded Sulfamethox-Tmp 800-160Mg [Bactrim 1 tab PO DAILY #20 tab 01/11/19 DS 800-160 mg] Ibuprofen [Motrin] 600 mg PO Q8HR PRN #30 tab 04/29/19 Sulfamethox-Tmp 800-160Mg [Bactrim 2 each PO Q12HR #40 tab 04/29/19 Ds] Cephalexin [Keflex] 500 mg PO Q6HR 10 Days cap 05/01/19 Sulfamethox-Tmp 800-160Mg [Bactrim 2 tab PO Q12HR 10 Days tab 05/01/19 DS 800-160 mg] Amoxic-Pot Clav 875-125Mg 1 tab PO Q12HR #20 tab 08/21/24 [Augmentin 875-125] Allergies Allergy/AdvReac Type Severity Reaction Status Date / Time acetaminophen AdvReac Nausea & Verified 08/21/24 11:40 Vomiting Review of Systems ROS Statement: Those systems with pertinent positive or pertinent negative responses have been documented in the HPI. ROS Other: All systems not noted in ROS Statement are negative. Past Medical History Past Medical History: No Reported History History of Any Multi-Drug Resistant Organisms: MRSA Date of last positivie culture/infection: 04/30/19 MDRO Source:: ASPIRATE Past Surgical History: Appendectomy Additional Past Surgical History / Comment(s): testicular tortion, tubes in ears, Past Psychological History: No Psychological Hx Reported Smoking Status: Current every day smoker, Vaper Past Alcohol Use History: Occasional Past Drug Use History: Marijuana General Exam Limitations: no limitations General appearance: alert, in no apparent distress Head exam: Present: atraumatic, normocephalic, normal inspection ENT exam: Present: normal exam, mucous membranes moist, other (diffuse dental caries with decay of right lower molar, pain to palpation, no erythema or drainage, no fluctuant masses). Absent: normal oropharynx Neck exam: Present: normal inspection. Absent: tenderness, meningismus, lymphadenopathy Respiratory exam: Present: normal lung sounds bilaterally. Absent: respiratory distress, wheezes, rales, rhonchi, stridor Cardiovascular Exam: Present: regular rate, normal rhythm, normal heart sounds. Absent: systolic murmur, diastolic murmur, rubs, gallop, clicks Neurological exam: Present: alert, oriented X3 Psychiatric exam: Present: normal affect, normal mood Skin exam: Present: warm, dry, intact, normal color. Absent: rash Course Vital Signs 08/21/24 11:36 Temperature 98.2 F Pulse Rate 91 Respiratory 18 Rate Blood Pressure 149/88 O2 Sat by Pulse 98 Oximetry Medical Decision Making - Medical Decision Making Was pt. sent in by a medical professional or institution (, [facility], [employer], urgent care, hospital, or snf...) When possible be specific @ -No Did you speak to anyone other than the patient for history (EMS, parent, family, police, friend...)? What history was obtained from this source @ -No Did you review nursing and triage notes (agree or disagree)? Why? @ -I reviewed and agree with nursing and triage notes Were old charts reviewed (outside hosp., previous admission, EMS record, old EKG, old radiological studies, urgent care reports/EKG's, snf records)? Report findings @ -No old charts were reviewed Differential Diagnosis (chest pain, altered mental status, abdominal pain women, abdominal pain men, vaginal bleeding, weakness, fever, dyspnea, syncope, headache, dizziness, GI bleed, back pain, seizure, CVA, palpatations, mental health, musculoskeletal)? @ -Dental infection, dental abscess, gingivitis, dental caries, Ovidio's angina EKG interpreted by me (3pts min.). @ -None X-rays interpreted by me (1pt min.). @ -None done CT interpreted by me (1pt min.). @ -None done U/S interpreted by me (1pt. min.). @ -None done What testing was considered but not performed or refused? (CT, X-rays, U/S, labs)? Why? @ -None What meds were considered but not given or refused? Why? @ -None Did you discuss the management of the patient with other professionals (professionals i.e. DARELL Morrison, [employer], lab, RT, psych nurse, psychiatric social worker supervisor, visual lead, teacher, staff electronic warfare officer, piano case and bench assembler)? Give summary @ -No Was smoking cessation discussed for >3mins.? @ -No Was critical care preformed (if so, how long)? @ -No Were there social determinants of health that impacted care today? How? (Homelessness, low income, unemployed, alcoholism, drug addiction, transportatio n, low edu. Level, literacy, decrease access to med. care, residential, rehab)? @ -No Was there de-escalation of care discussed even if they declined (Discuss DNR or withdrawal of care, Hospice)? DNR status @ -No What co-morbidities impacted this encounter? (DM, HTN, Smoking, COPD, CAD, Cancer, CVA, ARF, Chemo, Hep., AIDS, mental health diagnosis, sleep apnea, morbid obesity)? @ -None Was patient admitted / discharged? Hospital course, mention meds given and route, prescriptions, significant lab abnormalities, going to OR and other pertinent info. @ -Discharged. This is a 28-year-old male presenting with dental pain x 1 day. Pt is afebrile, no red flag symptoms. No lip or tongue swelling or difficulty swallowing. On examination, there is diffuse dental caries with moderate decay of right lower molar at site of pain. No fluctuant masses or signs of abscess. Patient was provided with analgesics. Advised close follow-up with dentist, oral surgery referral given. Will discharge with antibiotic prescription. Supportive care discussed and patient is agreeable to plan. Case was discussed with my ED attending Dr. Ryan. Patient discharged in stable condition. Undiagnosed new problem with uncertain prognosis? @ -No Drug Therapy requiring intensive monitoring for toxicity (Heparin, Nitro, Insulin, Cardizem)? @ -No Were any procedures done? @ -No Diagnosis/symptom? @ -Dental infection Acute, or Chronic, or Acute on Chronic? @ -Acute Uncomplicated (without systemic symptoms) or Complicated (systemic symptoms)? @ -Uncomplicated Side effects of treatment? @ -No Exacerbation, Progression, or Severe Exacerbation? @ -No Poses a threat to life or bodily function? How? (Chest pain, [place], [place], pneumonia, PE, COPD, DKA, ARF, appy, cholecystitis, CVA, Diverticulitis, Homicidal, Suicidal, threat to staff... and all critical care pts) @ -No Disposition Clinical Impression: Dental infection Disposition: HOME SELF-CARE Condition: Stable Instructions (If sedation given, give patient instructions): Toothache (ED) Additional Instructions: Take Augmentin twice daily for 10 days. Take NSAIDs such as ibuprofen or Aleeve as needed for pain. Please return to the Emergency Department if symptoms worsen or any other concerns. Prescriptions: Amoxic-Pot Clav 875-125Mg [Augmentin 875-125] 1 tab PO Q12HR #20 tab Is patient prescribed a controlled substance at d/c from ED?: No Referrals: Zachery Whittaker MD [Primary Care Provider] - 1-2 days Ray Maldonado DDS [STAFF PHYSICIAN] - 1-2 days Time of Disposition: 12:16
[2024-08-21 12:48] VITALS: BP 121/84; PULSE 83; TEMP 98.4
== END 2024-08-21 12:48 | disposition home or self-care (01) ==
LOC: EC 11:28
CPT/HCPCS: 99282